=== PATIENT | male | born 1980 | race American Indian/Alaskan Native ===

== ENCOUNTER 2017-07-21 16:50 | Emergency (ER) | payer SELFPAY ==
[2017-07-21 16:55] VITALS: BP 120/88
--- NOTE | 2017-07-21 17:25 | Emergency Department Report ---
ED ENT HPI - General Chief complaint: Dental/Oral Stated complaint: TOOTHACHE Time Seen by Provider: 07/21/17 17:25 Source: patient Mode of arrival: Ambulatory Limitations: No Limitations - History of Present Illness Initial comments: This is a 37-year-old male nontoxic, well nourished in appearance, no acute signs of distress presents to the ED with c/o of acute on chronic toothache. Patient stated pain has came back since 2 days ago. Patient denies any facial swelling. He denies any fever, chills, nausea, vomiting, chest pain or shortness of breath. Patient denies any allergies or significant pat medical history. MD complaint: tooth pain -: days(s) (2) Location: tooth # (20) 1 - toothache Severity: mild Severity scale (0 -10): 8 Quality: aching Consistency: constant Improves with: none Worsens with: none Context- Dental: history of dental caries, poor dental care Associated Symptoms: gum swelling, toothache. denies: fever, cough, pain with swallowing, sore throat, tinnitus, hearing loss, discharge from ear, rhinorrhea - Related Data Previous Rx's Medication Instructions Recorded Last Taken Type Chlorhexidine Mouthwash [Peridex] 15 ml MM BID #1 bottle 07/21/17 Unknown Rx Clindamycin [Clindamycin CAP] 300 mg PO Q8H 7 Days cap 07/21/17 Unknown Rx Ibuprofen [Motrin] 600 mg PO Q8H PRN #30 tablet 07/21/17 Unknown Rx traMADol [Ultram] 50 mg PO Q6HR PRN #12 tablet 07/21/17 Unknown Rx Allergies Allergy/AdvReac Type Severity Reaction Status Date / Time No Known Allergies Allergy Unverified 07/21/17 16:56 ED Dental HPI - General Chief complaint: Dental/Oral Stated complaint: TOOTHACHE Time Seen by Provider: 07/21/17 17:25 Source: patient Mode of arrival: Ambulatory Limitations: No Limitations - Related Data Previous Rx's Medication Instructions Recorded Last Taken Type Chlorhexidine Mouthwash [Peridex] 15 ml MM BID #1 bottle 07/21/17 Unknown Rx Clindamycin [Clindamycin CAP] 300 mg PO Q8H 7 Days cap 07/21/17 Unknown Rx Ibuprofen [Motrin] 600 mg PO Q8H PRN #30 tablet 07/21/17 Unknown Rx traMADol [Ultram] 50 mg PO Q6HR PRN #12 tablet 07/21/17 Unknown Rx Allergies Allergy/AdvReac Type Severity Reaction Status Date / Time No Known Allergies Allergy Unverified 07/21/17 16:56 ED Review of Systems ROS: Stated complaint: TOOTHACHE Other details as noted in HPI Constitutional: denies: chills, fever Eyes: denies: eye pain, eye discharge, vision change ENT: dental pain. denies: ear pain, throat pain Respiratory: denies: cough, shortness of breath, wheezing Cardiovascular: denies: chest pain, palpitations Endocrine: no symptoms reported Gastrointestinal: denies: abdominal pain, nausea, diarrhea Genitourinary: denies: urgency, dysuria Musculoskeletal: denies: back pain, joint swelling, arthralgia Skin: denies: rash, lesions Neurological: denies: headache, weakness, paresthesias Psychiatric: denies: anxiety, depression Hematological/Lymphatic: denies: easy bleeding, easy bruising ED Past Medical Hx - Past Medical History Previous Medical History?: No - Surgical History Past Surgical History?: No - Social History Smoking Status: Current Every Day Smoker Substance Use Type: None - Medications Home Medications: Home Medications Medication Instructions Recorded Confirmed Last Taken Type Chlorhexidine Mouthwash [Peridex] 15 ml MM BID #1 bottle 07/21/17 Unknown Rx Clindamycin [Clindamycin CAP] 300 mg PO Q8H 7 Days cap 07/21/17 Unknown Rx Ibuprofen [Motrin] 600 mg PO Q8H PRN #30 tablet 07/21/17 Unknown Rx traMADol [Ultram] 50 mg PO Q6HR PRN #12 tablet 07/21/17 Unknown Rx ED Physical Exam - General Limitations: No Limitations General appearance: alert, in no apparent distress - Head Head exam: Present: atraumatic, normocephalic - Eye Eye exam: Present: normal appearance - ENT ENT exam: Present: mucous membranes moist, TM's normal bilaterally, normal external ear exam - Expanded ENT Exam Expanded Ear exam: Present: normal external inspection Mouth exam: Present: normal external inspection, tongue normal. Absent: drooling, trismus, muffled voice, tongue elevation, laceration Teeth exam: Present: dental caries, fractured tooth # (20), dental tenderness # (20), gingival enlargement, other (No facial swelling. ) Throat exam: Positive: normal inspection, other (Uvula midline. No abscess.). Negative: tonsillar erythema, tonsillomegaly, tonsillar exudate, R peritonsillar mass, L peritonsillar mass - Neck Neck exam: Present: normal inspection, full ROM. Absent: tenderness, meningismus, lymphadenopathy, thyromegaly - Respiratory Respiratory exam: Present: normal lung sounds bilaterally. Absent: respiratory distress, wheezes, rales, rhonchi, stridor, chest wall tenderness, accessory muscle use, decreased breath sounds, prolonged expiratory - Cardiovascular Cardiovascular Exam: Present: regular rate, normal rhythm, normal heart sounds. Absent: bradycardia, tachycardia, irregular rhythm, systolic murmur, diastolic murmur, rubs, gallop - GI/Abdominal GI/Abdominal exam: Present: soft, normal bowel sounds - Rectal Rectal exam: Present: deferred - Extremities Exam Extremities exam: Present: normal inspection - Back Exam Back exam: Present: normal inspection - Neurological Exam Neurological exam: Present: alert, oriented X3 - Psychiatric Psychiatric exam: Present: normal affect, normal mood - Skin Skin exam: Present: warm, dry, intact, normal color. Absent: rash ED Course Vital Signs 07/21/17 16:53 Temperature 98.9 F Pulse Rate 87 Blood Pressure 120/88 O2 Sat by Pulse 100 Oximetry - Reevaluation(s) Reevaluation #1: 07/21/17 17:32 Patient is speaking in full sentences with no signs of distress noted. Critical care attestation.: If time is entered above; I have spent that time in minutes in the direct care of this critically ill patient, excluding procedure time. ED Disposition Clinical Impression: Dental caries, Gingivitis Disposition: - TO HOME OR SELFCARE Is pt being admited?: No Does the pt Need Aspirin: No Condition: Stable Instructions: Dental Caries (ED), Gingivitis (ED), Ibuprofen (By mouth), Tramadol (By mouth), Clindamycin (By mouth) Additional Instructions: Follow-up with a dentist in 3-5 days or if symptoms worsen and continue return to emergency room as soon as possible. Do not operate any machinery while taking Ultram due to drowsiness. Prescriptions: Chlorhexidine Mouthwash [Peridex] 15 ml MM BID #1 bottle Clindamycin [Clindamycin CAP] 300 mg PO Q8H 7 Days cap Ibuprofen [Motrin] 600 mg PO Q8H PRN #30 tablet PRN Reason: Pain traMADol [Ultram] 50 mg PO Q6HR PRN #12 tablet PRN Reason: Pain Referrals: PRIMARY CAREMD [Primary Care Provider] - 3-5 Days ALMA UMANZOR MD [Staff Physician] - 3-5 Days [facility] [Outside] - 3-5 Days Forms: Work/School Release Form(ED)
[2017-07-21] MEDS ORDERED: TYLENOL ONE (17:27)
[2017-07-21] MEDS ORDERED: TYLENOL PO ONE (17:30)
== END 2017-07-21 17:30 | disposition home or self-care (01) ==
LOC: ED 16:50
DX: K02.9 Dental caries, unspecified (principal); K05.10 Chronic gingivitis, plaque induced; F17.200 Nicotine dependence, unspecified, uncomplicated
CPT/HCPCS: 99282

== ENCOUNTER 2019-09-16 10:54 | Emergency (ER) | payer OTHER ==
[2019-09-16 11:06] VITALS: BP 140/76
--- NOTE | 2019-09-16 12:03 | Emergency Department Report ---
- General Chief complaint: Skin/Abscess/Foreign Body Stated complaint: INSECT BITE ON RT LEG Time Seen by Provider: 09/16/19 11:25 Source: patient Mode of arrival: Ambulatory Limitations: No Limitations - History of Present Illness MD complaint: insect bite/sting Tetanus Up to Date: no Severity: mild Quality: aching, dull Consistency: constant Improves with: none Worsens with: none (f) - Related Data Previous Rx's Medication Instructions Recorded Last Taken Type Chlorhexidine Mouthwash [Peridex] 15 ml MM BID #1 bottle 07/21/17 Unknown Rx Clindamycin [Clindamycin CAP] 300 mg PO Q8H 7 Days cap 07/21/17 Unknown Rx Ibuprofen [Motrin] 600 mg PO Q8H PRN #30 tablet 07/21/17 Unknown Rx traMADoL [Ultram] 50 mg PO Q6HR PRN #12 tablet 07/21/17 Unknown Rx Amoxicillin [Amoxicillin TAB] 875 mg PO BID #20 tablet 01/23/19 Unknown Rx Chlorhexidine Mouthwash [Peridex] 15 ml MM BID #1 bottle 01/23/19 Unknown Rx Ketorolac [Toradol] 10 mg PO Q6H PRN #15 tablet 01/23/19 Unknown Rx Lidocaine Viscous 2% 5 ml MM Q3H PRN #120 udc 01/23/19 Unknown Rx Ketorolac [Toradol] 10 mg PO Q6H PRN #15 tablet 09/16/19 Unknown Rx Sulfamethoxazole/Trimethoprim 1 each PO BID #20 tablet 09/16/19 Unknown Rx [Bactrim Ds] cephALEXin [Keflex] 500 mg PO Q6HR #40 capsule 09/16/19 Unknown Rx Allergies Allergy/AdvReac Type Severity Reaction Status Date / Time No Known Allergies Allergy Unverified 07/21/17 16:56 Abscess Boil HPI - HPI Chief Complaint: Skin/Abscess/Foreign Body Stated Complaint: INSECT BITE ON RT LEG Time Seen by Provider: 09/16/19 11:25 Home Medications: Previous Rx's Medication Instructions Recorded Last Taken Type Chlorhexidine Mouthwash [Peridex] 15 ml MM BID #1 bottle 07/21/17 Unknown Rx Clindamycin [Clindamycin CAP] 300 mg PO Q8H 7 Days cap 07/21/17 Unknown Rx Ibuprofen [Motrin] 600 mg PO Q8H PRN #30 tablet 07/21/17 Unknown Rx traMADoL [Ultram] 50 mg PO Q6HR PRN #12 tablet 07/21/17 Unknown Rx Amoxicillin [Amoxicillin TAB] 875 mg PO BID #20 tablet 01/23/19 Unknown Rx Chlorhexidine Mouthwash [Peridex] 15 ml MM BID #1 bottle 01/23/19 Unknown Rx Ketorolac [Toradol] 10 mg PO Q6H PRN #15 tablet 01/23/19 Unknown Rx Lidocaine Viscous 2% 5 ml MM Q3H PRN #120 udc 01/23/19 Unknown Rx Ketorolac [Toradol] 10 mg PO Q6H PRN #15 tablet 09/16/19 Unknown Rx Sulfamethoxazole/Trimethoprim 1 each PO BID #20 tablet 09/16/19 Unknown Rx [Bactrim Ds] cephALEXin [Keflex] 500 mg PO Q6HR #40 capsule 09/16/19 Unknown Rx Allergies/Adverse Reactions: Allergies Allergy/AdvReac Type Severity Reaction Status Date / Time No Known Allergies Allergy Unverified 07/21/17 16:56 ED Review of Systems ROS: Stated complaint: INSECT BITE ON RT LEG Other details as noted in HPI Comment: All other systems reviewed and negative ED Past Medical Hx - Past Medical History Previous Medical History?: No - Surgical History Past Surgical History?: Yes Additional Surgical History: Surgery for stomach ulcer. Right leg surgery - Social History Smoking Status: Current Every Day Smoker Substance Use Type: None - Medications Home Medications: Home Medications Medication Instructions Recorded Confirmed Last Taken Type Chlorhexidine Mouthwash [Peridex] 15 ml MM BID #1 bottle 07/21/17 Unknown Rx Clindamycin [Clindamycin CAP] 300 mg PO Q8H 7 Days cap 07/21/17 Unknown Rx Ibuprofen [Motrin] 600 mg PO Q8H PRN #30 tablet 07/21/17 Unknown Rx traMADoL [Ultram] 50 mg PO Q6HR PRN #12 tablet 07/21/17 Unknown Rx Amoxicillin [Amoxicillin TAB] 875 mg PO BID #20 tablet 01/23/19 Unknown Rx Chlorhexidine Mouthwash [Peridex] 15 ml MM BID #1 bottle 01/23/19 Unknown Rx Ketorolac [Toradol] 10 mg PO Q6H PRN #15 tablet 01/23/19 Unknown Rx Lidocaine Viscous 2% 5 ml MM Q3H PRN #120 udc 01/23/19 Unknown Rx Ketorolac [Toradol] 10 mg PO Q6H PRN #15 tablet 09/16/19 Unknown Rx Sulfamethoxazole/Trimethoprim 1 each PO BID #20 tablet 09/16/19 Unknown Rx [Bactrim Ds] cephALEXin [Keflex] 500 mg PO Q6HR #40 capsule 09/16/19 Unknown Rx ED Physical Exam - General Limitations: No Limitations General appearance: alert, in no apparent distress - Head Head exam: Present: atraumatic, normocephalic - Eye Eye exam: Present: normal appearance, PERRL, EOMI Pupils: Present: normal accommodation - ENT ENT exam: Present: normal exam, normal orophraynx, mucous membranes moist, TM's normal bilaterally - Neck Neck exam: Present: normal inspection, full ROM - Respiratory Respiratory exam: Present: normal lung sounds bilaterally. Absent: respiratory distress, wheezes, rales, rhonchi, chest wall tenderness, accessory muscle use - Cardiovascular Cardiovascular Exam: Present: regular rate, normal rhythm. Absent: systolic murmur, diastolic murmur, rubs, gallop - GI/Abdominal GI/Abdominal exam: Present: soft, normal bowel sounds. Absent: tenderness, guarding, hyperactive bowel sounds, hypoactive bowel sounds, mass, bruit, pulsatile mass - Rectal Rectal exam: Present: deferred - Extremities Exam Extremities exam: Present: normal inspection, full ROM, normal capillary refill - Back Exam Back exam: Present: normal inspection. Absent: CVA tenderness (R), CVA tenderness (L) - Neurological Exam Neurological exam: Present: alert, oriented X3, CN II-XII intact, normal gait - Psychiatric Psychiatric exam: Present: normal affect, normal mood - Skin Skin exam: Present: warm, dry, intact, erythema (Mildly indurated mound like tender bite areas to the lower extremity to the anterior lower leg no lymphangitis noted. Pulses 2+ no wound discharge). Absent: rash ED Course Vital Signs 09/16/19 11:05 Temperature 97.6 F Pulse Rate 72 Respiratory 16 Rate Blood Pressure 140/76 [Right] O2 Sat by Pulse 100 Oximetry ED Medical Decision Making - Medical Decision Making Right lower extremity the site #3 insect bites appears to be well contained no signs of any lymphangitis no signs of any uniform swelling pulses are 2+ no wound drainage wound is closed not open advised follow-up in 3 days for wound reevaluation and to take the medication as prescribed in its entirety also advised to keep clean skin cream with antibacterial soap and water he acknow ledges importance of follow-up as we discussed Critical care attestation.: If time is entered above; I have spent that time in minutes in the direct care of this critically ill patient, excluding procedure time. ED Disposition Clinical Impression: Insect bite, Cellulitis Disposition: TO HOME OR SELFCARE Is pt being admited?: No Does the pt Need Aspirin: No Condition: Stable Instructions: Cellulitis (ED), Insect Bite or Sting (ED) Prescriptions: Sulfamethoxazole/Trimethoprim [Bactrim Ds] 1 each PO BID #20 tablet cephALEXin [Keflex] 500 mg PO Q6HR #40 capsule Ketorolac [Toradol] 10 mg PO Q6H PRN #15 tablet PRN Reason: Pain Referrals: DELORES FERREIRA MD [Staff Physician] - 3-5 Days
== END 2019-09-16 12:30 | disposition home or self-care (01) ==
LOC: ED 10:54
DX: L03.115 Cellulitis of right lower limb (principal); F17.200 Nicotine dependence, unspecified, uncomplicated; Z79.899 Other long term (current) drug therapy; W57.XXXA Bitten or stung by nonvenomous insect and other nonvenomous arthropods, initial encounter; Y93.89 Activity, other specified; Y92.89 Other specified places as the place of occurrence of the external cause; Y99.8 Other external cause status
CPT/HCPCS: 99282

== ENCOUNTER 2020-01-30 13:46 | Emergency (ER) | payer OTHER ==
[2020-01-30 14:04] VITALS: BP 124/86
[2020-01-30] MEDS ORDERED: ONDANSETRON 4 MG ODT TAB PO STA (15:48)
--- NOTE | 2020-01-30 15:54 | Emergency Department Report ---
ED Abdominal Pain HPI - General Chief Complaint: Abdominal Pain Stated Complaint: ABD PAIN Time Seen by Provider: 01/30/20 14:38 Source: patient Mode of arrival: Ambulatory Limitations: No Limitations - History of Present Illness Initial Comments: 39-year-old -[place] male presents emergency department complaining of abdominal pain associated with nausea and diarrhea with some mild vomiting that started yesterday after consuming some shellfish in the form of crabs. States that the symptoms lasted for about 12 hours and and resolved shortly before his arrival to the emergency department but he just came to the evaluated to be sure that he was safe reports no odynophagia or dysphasia no fever, chills, sweats no hemoptysis no hematemesis no hematochezia. No abdomen abdominal pain at current. No dysuria. MD Complaint: abdominal pain Consistency: now resolved Improves With: nothing Worsens With: nothing Associated Symptoms: denies other symptoms - Related Data Previous Rx's Medication Instructions Recorded Last Taken Type Chlorhexidine Mouthwash [Peridex] 15 ml MM BID #1 bottle 07/21/17 Unknown Rx Clindamycin [Clindamycin CAP] 300 mg PO Q8H 7 Days cap 07/21/17 Unknown Rx Ibuprofen [Motrin] 600 mg PO Q8H PRN #30 tablet 07/21/17 Unknown Rx traMADoL [Ultram] 50 mg PO Q6HR PRN #12 tablet 07/21/17 Unknown Rx Amoxicillin [Amoxicillin TAB] 875 mg PO BID #20 tablet 01/23/19 Unknown Rx Chlorhexidine Mouthwash [Peridex] 15 ml MM BID #1 bottle 01/23/19 Unknown Rx Ketorolac [Toradol] 10 mg PO Q6H PRN #15 tablet 01/23/19 Unknown Rx Lidocaine Viscous 2% 5 ml MM Q3H PRN #120 udc 01/23/19 Unknown Rx Ketorolac [Toradol] 10 mg PO Q6H PRN #15 tablet 09/16/19 Unknown Rx Sulfamethoxazole/Trimethoprim 1 each PO BID #20 tablet 09/16/19 Unknown Rx [Bactrim Ds] cephALEXin [Keflex] 500 mg PO Q6HR #40 capsule 09/16/19 Unknown Rx Hyoscyamine Subl [Levsin Sl 0.125 0.125 mg PO Q4HR PRN #20 tablet 01/30/20 Unknown Rx TAB] Ondansetron [Zofran ODT TAB] 4 mg PO ONCE #20 tab.rapdis 01/30/20 Unknown Rx Allergies Allergy/AdvReac Type Severity Reaction Status Date / Time No Known Allergies Allergy Unverified 07/21/17 16:56 ED Review of Systems ROS: Stated complaint: ABD PAIN Other details as noted in HPI Comment: All other systems reviewed and negative ED Past Medical Hx - Past Medical History Previous Medical History?: Yes Additional medical history: STOMACH ULCERS, PANCREATITIS - Surgical History Past Surgical History?: Yes Additional Surgical History: Surgery for stomach ulcer. Right leg surgery - Social History Smoking Status: Current Every Day Smoker Substance Use Type: None - Medications Home Medications: Home Medications Medication Instructions Recorded Confirmed Last Taken Type Chlorhexidine Mouthwash [Peridex] 15 ml MM BID #1 bottle 07/21/17 Unknown Rx Clindamycin [Clindamycin CAP] 300 mg PO Q8H 7 Days cap 07/21/17 Unknown Rx Ibuprofen [Motrin] 600 mg PO Q8H PRN #30 tablet 07/21/17 Unknown Rx traMADoL [Ultram] 50 mg PO Q6HR PRN #12 tablet 07/21/17 Unknown Rx Amoxicillin [Amoxicillin TAB] 875 mg PO BID #20 tablet 01/23/19 Unknown Rx Chlorhexidine Mouthwash [Peridex] 15 ml MM BID #1 bottle 01/23/19 Unknown Rx Ketorolac [Toradol] 10 mg PO Q6H PRN #15 tablet 01/23/19 Unknown Rx Lidocaine Viscous 2% 5 ml MM Q3H PRN #120 udc 01/23/19 Unknown Rx Ketorolac [Toradol] 10 mg PO Q6H PRN #15 tablet 09/16/19 Unknown Rx Sulfamethoxazole/Trimethoprim 1 each PO BID #20 tablet 09/16/19 Unknown Rx [Bactrim Ds] cephALEXin [Keflex] 500 mg PO Q6HR #40 capsule 09/16/19 Unknown Rx Hyoscyamine Subl [Levsin Sl 0.125 0.125 mg PO Q4HR PRN #20 tablet 01/30/20 Unknown Rx TAB] Ondansetron [Zofran ODT TAB] 4 mg PO ONCE #20 tab.rapdis 01/30/20 Unknown Rx ED Physical Exam - General Limitations: No Limitations General appearance: alert, in no apparent distress - Head Head exam: Present: atraumatic, normocephalic - Eye Eye exam: Present: normal appearance, PERRL, EOMI Pupils: Present: normal accommodation - ENT ENT exam: Present: normal exam, mucous membranes moist, TM's normal bilaterally - Neck Neck exam: Present: normal inspection, full ROM - Respiratory Respiratory exam: Present: normal lung sounds bilaterally. Absent: respiratory distress, wheezes, rales, chest wall tenderness, accessory muscle use - Cardiovascular Cardiovascular Exam: Present: regular rate, normal rhythm. Absent: systolic murmur, diastolic murmur, rubs, gallop - GI/Abdominal GI/Abdominal exam: Present: soft, normal bowel sounds. Absent: distended, tenderness, guarding - Rectal Rectal exam: Present: deferred - Extremities Exam Extremities exam: Present: normal inspection, normal capillary refill - Back Exam Back exam: Present: normal inspection. Absent: CVA tenderness (R), CVA tenderness (L) - Neurological Exam Neurological exam: Present: alert, oriented X3, CN II-XII intact - Psychiatric Psychiatric exam: Present: normal affect, normal mood - Skin Skin exam: Present: warm, dry, intact, normal color. Absent: rash ED Course Vital Signs 01/30/20 14:03 Temperature 98.8 F Pulse Rate 97 H Respiratory 16 Rate Blood Pressure 124/86 [Right] O2 Sat by Pulse 99 Oximetry Critical care attestation.: If time is entered above; I have spent that time in minutes in the direct care of this critically ill patient, excluding procedure time. ED Disposition Disposition: [id number]-07 LEFT AGAINST MED ADVICE Condition: Stable Instructions: Acute Nausea and Vomiting (ED), Food Poisoning (ED), Gastroenteritis (ED) Prescriptions: Hyoscyamine Subl [Levsin Sl 0.125 TAB] 0.125 mg PO Q4HR PRN #20 tablet PRN Reason: abdominal pain Ondansetron [Zofran ODT TAB] 4 mg PO ONCE #20 tab.rapdis Referrals: [facility] [Provider Group] - 3-5 Days Forms: AMA Form
== END 2020-01-30 16:00 | disposition left against medical advice (07) ==
LOC: ED 13:46
DX: R10.9 Unspecified abdominal pain (principal); R11.0 Nausea; R19.7 Diarrhea, unspecified; F17.200 Nicotine dependence, unspecified, uncomplicated; Z79.899 Other long term (current) drug therapy; Z98.890 Other specified postprocedural states
CPT/HCPCS: 99282; Q0162